=== PATIENT | male | born 1995 | race Caucasian/White ===

== ENCOUNTER → 2024-12-05 10:47 | Outpatient (CLI) | payer OTHER, SELFPAY ==
--- NOTE | 2024-12-05 10:49 | DI.US.S_ITS ---
PROCEDURE: US SCROTUM INDICATIONS: LEFT TESTICULAR PAIN TECHNIQUE: Real-time scanning was performed of the scrotum and testicles, with image documentation. Color and pulse Doppler interrogation was performed of both testicles. COMPARISON: None. FINDINGS: Right: Testicle is normal in size, and homogenous in echotexture. Epididymis is normal in overall size and morphology. No hydrocele or varicoceles. Overlying scrotal skin is normal in thickness. Left: Testicle is normal in size, and homogeneous in echotexture. Epididymis is normal in overall size and morphology. No hydrocele or varicoceles. Overlying scrotal skin is normal in thickness. Doppler: Color and pulse Doppler demonstrate normal and symmetric arterial flow in both testicles. No sonographic evidence of hernia bilaterally. IMPRESSION: No acute torsion. No significant hydrocele or varicocele. Dictated by: Luis Marie M.D. on 12/05/2024 at 15:01 Approved by: Luis Marie M.D. on 12/05/2024 at 15:02
== END ==
DX: N50.812 Left testicular pain (principal)
CPT/HCPCS: 76870